=== PATIENT | male | born 1950 | race Caucasian/White ===

== ENCOUNTER 2021-04-17 13:47 | Observation (INO) | payer MEDICARE, MEDICAID, SELFPAY ==
[2021-04-17] VITALS (10 sets, daily range): BP systolic 145–162; BP diastolic 73–100; PULSE 59–86; RESP 16–20; TEMP 36.4–37.1; O2SAT 93–98; BMI 25.8; BMI 24.5
--- NOTE | 2021-04-17 13:38 | ECG_ITS ---
APPROVED REPORT Exam: Resting ECG HR:82 bpm ECG Measurements Heart Rate 82 AXES NM 188 P 82 QRSd 146 QRS 60 QT 442 T 22 QTc 516 Conclusion Normal sinus rhythm with sinus arrhythmia Right bundle branch block Abnormal ECG Electronically signed by : Fredo Santoyo MD 04/18/2021 21:07:34
--- NOTE | 2021-04-17 13:57 | XR_ITS ---
PROCEDURE INFORMATION: Exam: XR Chest Exam date and time: 04/17/2021 1:57 PM Age: 70 years old Clinical indication: Shortness of breath; Additional info: Nausea TECHNIQUE: Imaging protocol: XR of the chest. Views: 1 view. COMPARISON: No relevant prior studies available. FINDINGS: Lungs: Lungs are well aerated without a focal area of consolidation. Pleural spaces: Unremarkable. No pleural effusion. No pneumothorax. Heart/Mediastinum: The cardiac silhouette appears enlarged, some of which is magnification related to the AP projection. Bones/joints: Unremarkable. IMPRESSION: Lungs are well aerated without a focal area of consolidation.
--- NOTE | 2021-04-17 13:59 | HMH.EDGENADL ---
ED Disposition Clinical Impression: Chest pain Qualifiers: Chest pain type: precordial pain Qualified Code(s): R07.2 - Precordial pain Vomiting Qualifiers: Vomiting type: unspecified Nausea presence: with nausea Qualified Code(s): R11.2 - Nausea with vomiting, unspecified Disposition: Admitted as Observation Condition on Discharge: Good Referrals: Noble Gonzalez MD [Primary Care Provider] - - Critical Care Critical Care Time: No Attestation: On , the high probability of a clinically significant, sudden or life threatening deterioration of the following system(s) required my full and direct attention, intervention and personal management. The time I documented below is in addition to time spent performing reported procedures but includes the following listed in this critical care notation. Medical Decision Making - [place] Inquiry Pt receiving controlled substance: No Vital Signs: 04/17/21 13:48 Temperature 98.8 F Temperature Source Oral Pulse Rate [Radial] 72 Respiratory Rate 18 Blood Pressure [Right Arm] 145/77 H Blood Pressure Mean [Right Arm] 99 Blood Pressure Position [Right Arm] Sitting 02 Sat by Pulse Oximetry 98 Oxygen Delivery Method Room Air - Lab Data Lab Results 04/17/21 14:10: WBC 13.3 H, RBC 5.07, Hgb 15.1, Hct 45.8, MCV 90.3, MCH 29.8, MCHC 33.0, RDW 13.3, Plt Count 268, MPV 7.9, Neut % (Auto) 87.0 H, Lymph % (Auto) 8.2 L, [place] % (Auto) 3.5, Eos % (Auto) 1.0, Baso % (Auto) 0.3, Neut # (Auto) 11.6 H, Lymph # (Auto) 1.1, [place] # (Auto) 0.5, Eos # (Auto) 0.1, Baso # (Auto) 0.1, Total Counted 100, Neutrophils % (Manual) 86 H, Lymphocytes % (Manual) 9 L, Monocytes % (Manual) 4, Eosinophils % (Manual) 1, Platelet Estimate Normal 04/17/21 14:10: Sodium 141, Potassium 4.3, Chloride 104, Carbon Dioxide 25, Anion Gap 16.3 H, BUN 16, Creatinine 1.00, Estimated Creat Clear 79, Estimated GFR 74, Est GFR ( Amer) 89, Glucose 120 H, Calcium 9.7, Total Bilirubin 1.3, AST 129 H, ALT 69, Alkaline Phosphatase 102, Troponin I < 0.01, Total Protein 7.8, Albumin 4.6, Globulin 3.2, Albumin/Globulin Ratio 1.4 04/17/21 14:10: Lipase 101 Result diagrams: 04/17/21 14:10 04/17/21 14:10 Orders (Tests/Meds): ED MEDICATIONS Discontinued Medications Generic Name Dose Route Start Last Admin Trade Name Jose PRN Reason Stop Dose Admin Aspirin 243 mg 04/17/21 14:12 04/17/21 14:17 Aspirin 81mg Chewable Tablet PO 04/17/21 14:13 243 mg ONCE ONE Administration ORDERS Category Date Time Status Troponin I Q3H Lab 04/17/21 17:00 Ordered Troponin I Q3H Lab 04/17/21 20:00 Ordered Urinalysis and Microscopic Stat Lab 04/17/21 13:57 Ordered - Radiology Data #1 Image(s): Chest Image Reviewed: Yes I reviewed the patient's radiology image, Yes I have reviewed radiologist's interpretation Preliminary Findings: Normal/NAD PROCEDURE INFORMATION: Exam: XR Chest Exam date and time: 04/17/2021 1:57 PM Age: 70 years old Clinical indication: Shortness of breath; Additional info: Nausea TECHNIQUE: Imaging protocol: XR of the chest. Views: 1 view. COMPARISON: No relevant prior studies available. FINDINGS: Lungs: Lungs are well aerated without a focal area of consolidation. Pleural spaces: Unremarkable. No pleural effusion. No pneumothorax. Heart/Mediastinum: The cardiac silhouette appears enlarged, some of which is magnification related to the AP projection. Bones/joints: Unremarkable. IMPRESSION: Lungs are well aerated without a focal area of consolidation. - ECG Data Tracing #1 EKG interpreted by Del Allen MD: Rhythm: sinus Rate: 82 [place]: normal Ectopy: none Conduction: Right bundle branch block ST Segment Changes: none T Wave Changes: none Q Waves: none No evidence of acute ischemia or injury - Physician Consults Physician Consulted: Pollo Time: 15:57 Reason -: Adm
[2021-04-17 14:23] LABS: Basophils # 0.1 K/mm3 (0-0.2); Basophils % 0.3 % (0.1-2.0); Eosinophils # 0.1 K/mm3 (0.0-0.4); Hematocrit 45.8 % (42.0-52.0); Hemoglobin 15.1 g/dL (14.1-18.0); Lymphocytes # 1.1 K/mm3 (0.7-4.5); Lymphocytes % 8.2 % (10-50); Mean Corpuscular Hemoglobin 29.8 pg (27.0-31.2); Mean Corpuscular Volume 90.3 fl (80-94); Mean Platelet Volume 7.9 fl (7.4-10.4); Monocytes # 0.5 K/mm3 (0.1-1.0); Monocytes % 3.5 % (1.7-9.3); Neutrophils # 11.6 K/mm3 (1.8-7.8); Platelet Count 268 K/mm3 (142-424); Red Blood Count 5.07 M/mm3 (4.60-6.20); Red Cell Distribution Width 13.3 % (11.5-17.5); White Blood Count 13.3 K/mm3 (4.8-10.8)
[2021-04-17 14:26] LABS: Chloride 104 mmol/L (98-107); Potassium 4.3 mmoL/L (3.5-5.1); Sodium 141 mmol/L (136-145)
[2021-04-17 14:28] LABS: Alanine Aminotransferase 69 U/L (12-78); Aspartate Amino Transferase 129 U/L (17-59); Blood Urea Nitrogen 16 mg/dl (9-20); Creatinine Clearance Estimated 79 mL/min (50-200); Estimated Glomerular Filt Rate 74 ml/min (>60); GFR (African American) 89 ML/MIN (>60)
[2021-04-17 14:29] LABS: Albumin Level 4.6 g/dl (3.5-5.0); Albumin/Globulin Ratio 1.4 (1.1-1.8); Alkaline Phosphatase 102 U/L (38-126); Anion Gap 16.3 mEq/L (5-15); Bilirubin,Total 1.3 mg/dl (0.2-1.3); Calcium 9.7 mg/dl (8.4-10.2); Carbon Dioxide 25 mmol/L (22.0-30.0); Globulin 3.2 g/dL (1.3-3.2); Glucose 120 mg/dl (74-100); Lipase 101 U/L (23-300); Total Protein,Serum 7.8 g/dl (6.3-8.2)
[2021-04-17 14:35] LABS: MANUAL DIFFERENTIAL MANUAL DIFFERENTIAL (MANUAL DIFF)
[2021-04-17 14:45] LABS: Troponin I < 0.01 ng/ml (0.00-0.034)
[2021-04-17 15:11] LABS: Eosinophils % 1 % (0-3); Lymphocytes % 9 % (10-50); Monocytes % 4 % (2-9); Neutrophils % 86 % (42-76); Total Cells Counted 100
[2021-04-17 15:12] LABS: Platelet Estimate Normal
--- NOTE | 2021-04-17 16:29 | PC.NURSE ---
report called to floor
--- NOTE | 2021-04-17 16:35 | PC.NURSE ---
PT ARRIVED TO THE FLOOR AT THIS TIME
[2021-04-17 17:22] LABS: Coronavirus 19, PCR Not Detected (NotDetected); Influenza A, PCR Not Detected (NotDetected); Influenza B, PCR Not Detected (NotDetected)
--- NOTE | 2021-04-17 17:27 | PC.NURSE ---
pt has been admitted. He denies any CP or nausea/vomiting now. He is alert and able shake his head yes or no but is aphasic due to a history of a stroke. Sister is at bedside and was able to provide history. She reports His son Navarro is his POA. pts lungs are cta. bs+ no skin issues upon admission assessment.
--- NOTE | 2021-04-17 17:35 | PC.NURSE ---
spoke with SON who is POA. he states pts wishes are to be a DNR.
[2021-04-17 18:05] LABS: Troponin I < 0.01 ng/ml (0.00-0.034)
[2021-04-17 20:55] LABS: Troponin I < 0.01 ng/ml (0.00-0.034)
[2021-04-18] VITALS: PULSE 90
[2021-04-18 04:00] VITALS: BP 148/72; PULSE 60; PULSE 62; RESP 17; TEMP 37.2; O2SAT 98
[2021-04-18 04:32] VITALS: BMI 24.4
[2021-04-18 07:29] VITALS: BP 131/69; PULSE 61; RESP 18; TEMP 36.5; O2SAT 96
--- NOTE | 2021-04-18 07:36 | P.CONPHA_ITS ---
[facility] Pharmacy VTE Monitoring - Patient Demographics Admission date: 04/17/21 Report Date: 04/18/21 Time: 07:36 Allergies/Adverse Reactions: Patient Allergies No Known Allergies Allergy (Verified 04/17/21 13:56) Height: 1.73 m Weight: 73.028 kg Patient Problems: Current Active Problems Chest pain (Acute) Vomiting (Acute) - VTE Risk Labs: VTE Related Lab Results Hgb 15.1 g/dL (14.1-18.0) 04/17/21 14:10 Hct 45.8 % (42.0-52.0) 04/17/21 14:10 Plt Count 268 K/mm3 (142-424) 04/17/21 14:10 BUN 16 mg/dl (9-20) 04/17/21 14:10 Creatinine 1.00 mg/dl (0.66-1.25) 04/17/21 14:10 Estimated Creat Clear 79 mL/min (50-200) 04/17/21 14:10 - Prophylaxis VTE Prophylaxis Ordered?: Yes Types of VTE Prophylaxis: TEDS Knee High Location of Applied Device: Bilateral Lower Extremeties
--- NOTE | 2021-04-18 07:52 | HMH.PHAINT ---
MEDICATION RECONCILIATION COMPLETED ON PATIENT USING MAR FROM RESIDENTIAL. -RENÉE SIDHU, GARTHD
[2021-04-18 08:00] VITALS: PULSE 56
--- NOTE | 2021-04-18 08:17 | CA_ITS ---
APPROVED REPORT EXAM: Comprehensive 2D, Doppler, and color-flow Echocardiogram Loading Rack Supervisor: Tory Mosqueda CRT Ht: 5 ft 8 in Wt: 161lbs BSA: 1.86 BP: 145/77 mmHg Indications: DNR, CVA, CP, 2D Dimensions LVOT 2.05 cm (M/F) 1.5-2.5 LA Volume 42.20 mL LA Volume Index 22.70 mL/m2 (M/F) 16-34 M-Mode Dimensions RVDd 2.89 cm (0.9-2.6) LA Diam 4.00 cm (1.9-4.0) LVDd 5.19 cm (3.5-5.7) Ao Diam 3.66 cm (2.0-3.7) LVDs 3.86 cm (3.5-5.7) IVSd 1.41 cm (0.6-1.1) PWd 0.54 cm (0.6-1.1) EF (Teich) 50.10% FS 25.60% EDV (Teich) 128.90 mL TAPSE 2.26 (<1.7) ESV (Teich) 64.30 mL LV Diastology E Decel Time 217.00 (160-240 msec) E/A Ratio 0.82 MED E' 4.50 (< 7 cm/sec) MED A' 8.10 cm/s E'/MED E' Ratio 12.29 (>14) LAT E' 7.30 (<10 cm/sec) LAT A' 10.00 cm/s E/LAT E' Ratio 7.58 (>14) Aortic Valve AO Peak GR. 10.20 mmHg Mitral Valve MV A Velocity 68.00 (40-130 cm/s) E/A Ratio 0.82 MV Decel. Time 217.00 (160-240 ms) Pulmonary Valve PV Peak Velocity 131.00 (50-150 cm/s) Tricuspid Valve TR P. Velocity 206.00 cm/s RAP Estimate 10.00 mmHg RVSP 27.00 mmHg Left Ventricle Left atrium is mildly enlarged, left ventricle is normal size, mild concentric left ventricular hypertrophy, visually estimated ejection fraction 55% with no regional wall motion abnormality, grade 1 diastolic dysfunction seen without tissue Doppler evidence of raise left atrial pressure. Right Ventricle Right atrium and right ventricle are mildly enlarged with normal contractility. Aortic Valve Aortic valve is minimally thickened and fibrosed there is no aortic stenosis or aortic insufficiency. Mitral Valve Mitral valve is grossly normal, there is trace mitral regurgitation. Tricuspid Valve Tricuspid valve grossly normal, there is trace tricuspid regurgitation, tricuspid regurgitation jet velocity is inadequate for calculation of the right ventricular systolic pressure. Pulmonic Valve Pulmonic valve is poorly visualized. Great Vessels Aortic root is normal size. Inferior vena cava is normal size with normal inspiratory collapse. Pericardium No significant pericardial effusion noted. Conclusion 1. Mild biatrial enlargement, normal left ventricular size, mild concentric left ventricular hypertrophy, visually estimated ejection fraction 55% with no regional wall motion abnormality, grade 1 diastolic dysfunction seen without tissue Doppler evidence of raise left atrial pressure. 2. Mildly enlarged right ventricle with normal contractility. 3. Trace mitral and tricuspid regurgitation. 4. No significant pericardial effusion noted. 5. Inferior vena cava normal size with normal inspiratory collapse. Electronically signed by : Mikey Delcid MD 04/18/2021 21:27:28
[2021-04-18 11:14] VITALS: BP 142/69; PULSE 56; RESP 18; TEMP 36.6; O2SAT 95
--- NOTE | 2021-04-18 11:29 | SW/DCPLANNER ---
PATIENT IS A RESIDENT OF [facility] IN [place] AND IS SKILLED THERE UNDER HIS MEDICARE BENEFIT.. HE WILL BE RETURNING BACK THERE TODAY AND I HAVE NOTIFIED THE FACILITY OF HIS RETURN..
--- NOTE | 2021-04-18 11:46 | HMH.HPDC ---
General - General Admission date:: 04/17/21 Discharge date: 04/18/21 *Admission Date: 04/17/21 *Chief complaint: Nausea and chest pain *History of present illness: 70-year-old care home resident, recent patient of our practice who has had a stroke in the remote past, currently on aspirin therapy and statin therapy, has an expressive aphasia but is very oriented and able to delineate symptoms. He reported to the nurses at his care home that he was having some chest pain, it was also associated with some episodes of nausea and vomiting. Chest pain does not resolve with supportive care and he was transferred to the emergency department where emergency department work-up was initially negative but because of the character of his chest pain the ER physician elected to observe him overnight with serial enzymes and further testing. This morning the patient states he feels much better, denies chest pain, denies nausea or vomiting. [facility] History I have reviewed the patient's past medical history: Yes Medical History: Reports:: Cerebrovascular Accident, Hyperlipidemia, Hypertension Denies:: Cancer, Diabetes Mellitus Type 1, Diabetes Mellitus Type 2, MRSA *Have you ever received a pneumonia vaccine?: Yes *Have you received a flu vaccine this season?: Yes Other Surgeries: Yes: No Previous Surgery Amputation: No - *Social History Last grade of school completed: 7th or 8th Smoking Status: Never smoker Alcohol Intake: never *Occupational Status:: disabled *Travel in the last 8 weeks: None Family Hx:: No significant family history Review of Systems - Review of Systems Review of systems:: pertinent systems reviewed and negative unless documented below Exam Vital signs and Labs for Last 24 Hours: Temp Pulse Resp BP Pulse Ox 97.9 F 56 L 18 142/69 H 95 04/18/21 11:14 04/18/21 11:14 04/18/21 11:14 04/18/21 11:14 04/18/21 11:14 Laboratory Results - last 24 hr 04/17/21 14:10: WBC 13.3 H, RBC 5.07, Hgb 15.1, Hct 45.8, MCV 90.3, MCH 29.8, MCHC 33.0, RDW 13.3, Plt Count 268, MPV 7.9, Neut % (Auto) 87.0 H, Lymph % (Auto) 8.2 L, [place] % (Auto) 3.5, Eos % (Auto) 1.0, Baso % (Auto) 0.3, Neut # (Auto) 11.6 H, Lymph # (Auto) 1.1, [place] # (Auto) 0.5, Eos # (Auto) 0.1, Baso # (Auto) 0.1, Total Counted 100, Neutrophils % (Manual) 86 H, Lymphocytes % (Manual) 9 L, Monocytes % (Manual) 4, Eosinophils % (Manual) 1, Platelet Estimate Normal 04/17/21 14:10: Sodium 141, Potassium 4.3, Chloride 104, Carbon Dioxide 25, Anion Gap 16.3 H, BUN 16, Creatinine 1.00, Estimated Creat Clear 79, Estimated GFR 74, Est GFR ( Amer) 89, Glucose 120 H, Calcium 9.7, Total Bilirubin 1.3, AST 129 H, ALT 69, Alkaline Phosphatase 102, Troponin I < 0.01, Total Protein 7.8, Albumin 4.6, Globulin 3.2, Albumin/Globulin Ratio 1.4 04/17/21 14:10: Lipase 101 04/17/21 17:04: Troponin I < 0.01 04/17/21 17:04: SARS-CoV-2 (PCR) Not detected, Influenza A Untype (PCR) Not detected, Influenza Type B (PCR) Not detected 04/17/21 19:55: Troponin I < 0.01 I & O for Last 24 hours: Intake & Output 04/15/21 04/16/21 04/17/21 04/18/21 11:59 11:59 11:59 11:59 Intake Total 480 / 480 Balance 480 / 480 Weight 161 lb - Constitutional no acute distress - *Routine HEENT Exam Head: Present: normocephalic Eye: Present: EOMI, PERRL ENT: Present: mucous membranes moist - *Routine Neck Exam Present: supple. Absent: lymphadenopathy - *Routine Respiratory Exam Present: CTA bilaterally - *Routine Cardiovascular Exam Present: RRR - *Routine Abdominal Exam Present: soft, normoactive bowel sounds. Absent: tenderness - *Routine Rectal Exam Rectal:: deferred - *Routine Genitalia Exam Genitalia:: deferred - *Routine Extremities Exam Absent: cyanosis, clubbing, edema - *Routine Skin Exam Present: warm. Absent: rash - *Routine Neurological Exam Present: alert Patient has expressive aphasia but is able to communicate very nicely with yes or no answe
== END 2021-04-18 14:11 ==
LOC: ER 15:58 → 2ND 16:50
PROVIDERS: Admitting Provider Emergency Medicine; Emergency Provider Emergency Medicine; PCP Internal Medicine Adolescent Medicine; Visit Provider Internal Medicine Adolescent Medicine
DX: R07.9 Chest pain, unspecified (principal); Z20.822 Contact with and (suspected) exposure to COVID-19; I69.320 Aphasia following cerebral infarction; I69.351 Hemiplegia and hemiparesis following cerebral infarction affecting right dominant side; I10 Essential (primary) hypertension; Z79.899 Other long term (current) drug therapy
CPT/HCPCS: G0378; 71045; 80053; 83690; 84484; 85007; 85025; 93005; 93306; 99284; C9803; U0003; U0005